=== PATIENT | female | born 1940 | race Caucasian/White ===

== ENCOUNTER 2016-08-13 14:44 | Emergency (ER) | payer OTHER, MEDICARE ==
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
== END 2016-08-13 17:04 | disposition home or self-care (01) ==
LOC: ED 14:44
DX: S00.83XA Contusion of other part of head, initial encounter (principal); R51 Headache; M50.323 Other cervical disc degeneration at C6-C7 level; I10 Essential (primary) hypertension; V43.62XA Car passenger injured in collision with other type car in traffic accident, initial encounter; Y92.410 Unspecified street and highway as the place of occurrence of the external cause